=== PATIENT | female | born 1950 | race Caucasian/White ===

== ENCOUNTER 2021-03-29 08:48 | Day surgery (SDC) | payer MEDICARE, BC ==
[~2021-03-29] VITALS: Ht 172.7 cm; Wt 97.2 kg
[~2021-03-29 08:48] MED LIST: ALBU90OI INH; ATOR10 PO; ESTROGEN CREAM VAG; MELO7.5 PO
--- NOTE | 2021-03-29 10:05 | NUR ---
[facility] in [facility] warming gown applied. History, Chart, Medications and Allergies reviewed before start of procedure.Lungs clear T/O to Auscultation. Patient confirms NPO status and agrees with scheduled surgery. Pre-Op teaching done. Pt verbalizes understanding. Patient States Post-Procedure ride home has been arranged. Patient reports completing Chlorhexadine shower X2 prior to admission to hospital.
--- NOTE | 2021-03-29 11:52 | NUR ---
03/29/21 1152 Gabe Degroot SCAB LIKE LOOSE SKIN NOTED ON LEFT FOOT BELOW TOE ON THE PROXIMAL SIDE DIME SIZE. SURGEON MADE AWARE, NO NEW ORDERS.
--- NOTE | 2021-03-29 19:07 | NUR ---
SHIFT SUMMARY PT STATUS POST FOR L TOTAL KNEE. AQUACEL, [facility]KE WRAP, TEDS, AND POLAR PACK IN PLACE; CDI. UP TO THE BATHROOM WITH A SBA/FWW/GB AND VOIDING. NO C/O PAIN AT THIS TIME. VSS. WILL REPORT TO LORE CRAWLEY.
--- NOTE | 2021-03-30 04:16 | NUR ---
SUMMARY PT HAS NO ACUTE ISSUES NOTED. PT HAS BEEN AMBULATORY AND VOIDING WELL. PT REPORTS PAIN IS MINIMAL. PT HAS SLEPT WELL T/OUT SHIFT. PT DENIES N/T AND HAS GOOD SENSATION. NO N/V REPORTED THIS SHIFT. CALL LIGHT IN REACH.
[2021-03-30 05:19] LABS: BASOPHILS ABSOLUTE AUTO 0.01 K/mm3 (0.00-0.23); BASOPHILS PERCENT AUTO 0 % (0-2); EOSINOPHILS PERCENT AUTO 0 % (0-6); Hematocrit 37.9 % (33.0-51.0); Hemoglobin 12.5 g/dL (11.5-16.0); IMMATURE GRAN ABSOLUTE AUTO 0.03 K/mm3 (0.00-0.10); IMMATURE GRAN PERCENT AUTO 0 % (0-1); LYMPHOCYTES ABSOLUTE AUTO 0.64 K/mm3 (0.84-5.20); LYMPHOCYTES PERCENT AUTO 6 % (21-46); MONOCYTES ABSOLUTE AUTO 0.47 K/mm3 (0.16-1.47); MONOCYTES PERCENT AUTO 4 % (4-13); Mean Corpuscular HGB 29.5 pg (26.0-34.0); Mean Corpuscular Volume 89 fL (80-100); Mean Platelet Volume 10.5 fL (9.1-12.4); NEUTROPHILS ABSOLUTE AUTO 10.05 K/mm3 (1.96-9.15); NEUTROPHILS PERCENT AUTO 90 % (41-73); Platelet Count 174 K/mm3 (150-400); RDW Coefficient Variation 11.7 % (11.7-14.2); RDW Standard Deviation 37.3 fL (35.1-46.3); Red Blood Cell Count 4.24 M/mm3 (3.80-5.20)
[2021-03-30 05:36] LABS: Anion Gap 4 mmol/L (6-16); Blood Urea Nitrogen 22 mg/dL (8-24); Bun/Creatinine Ratio 27.4 (12.0-20.0); CO2, Blood 26 mmol/L (21-32); Calcium, Blood 8.4 mg/dL (8.5-10.1); Chloride, Blood 107 mmol/L (98-108); Glomerular Filtration Rate >60 (60-); Glucose, Blood 151 mg/dL (70-99); Magnesium, Blood 1.9 mg/dL (1.6-2.4); Potassium, Blood 4.6 mmol/L (3.5-5.5); Sodium, Blood 137 mmol/L (136-145)
[2021-03-30] MEDS ORDERED: Ecotrin325 MG PO (06:39)
[2021-03-30] MEDS ORDERED: OXAYDO5 M1 PO (06:55)
[2021-03-30] MEDS ORDERED: PROMETHAZINE12.5 M3 PO (06:56)
--- NOTE | 2021-03-30 12:45 | NUR ---
1235 discharged to home with her daughter. pt reports pain is well controlled with po meds. ambulating in room and alfonso with gait belt, walker and standby assist. marcus po food and fluids without nausea. dressing dry and intact to left knee. patient verbalizes understanding of discharge instructions
== END 2021-03-30 12:36 | disposition home or self-care (01) ==
LOC: ORSCMMR 08:48 → ORD 10:00 → ORSCMMR 10:00 → SURS 14:13 → ORSCMMR 14:13 → SURS 15:17 → ORSCMMR 03-30 12:36
PROVIDERS: Orthopaedic Surgery
PROC: 8E0YXBZ Computer Assisted Procedure of Lower Extremity (ICD-10-PCS; principal; 2021-03-29 10:00)
PROC: 0SRD0J9 Replacement of Left Knee Joint with Synthetic Substitute, Cemented, Open Approach (ICD-10-PCS; principal; 2021-03-29 10:00)
DX: M17.12 Unilateral primary osteoarthritis, left knee (principal); E78.5 Hyperlipidemia, unspecified; Z87.891 Personal history of nicotine dependence; Z79.899 Other long term (current) drug therapy
CPT/HCPCS: 36415; 73560-LT; 80048; 83735; 85025; 97110; 97116; 97162; 97530; A9270; C1713; C1776; J0171; J0690; J0735; J1100; J1885; J2250; J2370; J2405; J2704; J2795; J3010; J7120

== ENCOUNTER 2022-07-16 06:57 | Emergency (ER) | payer MEDICARE, BC ==
[~2022-07-16] VITALS: Ht 170.2 cm; Wt 102.5 kg
[~2022-07-16 06:57] MED LIST changes: +Ecotrin325 MG PO; +OXAYDO5 M1 PO; +PROMETHAZINE12.5 M3 PO
[2022-07-16 07:05] VITALS: BP 131/108
[2022-07-16] MEDS ORDERED: METOPROLOL SUCC25 MG PO (07:17)
[2022-07-16] MEDS ORDERED: DARIFENACIN ER15 MG PO (07:18)
[2022-07-16 09:05] LABS: Magnesium, Blood 2.3 mg/dL (1.6-2.4)
[2022-07-16 09:06] LABS: Bun/Creatinine Ratio 24.8 (12.0-20.0); Calcium, Blood 8.9 mg/dL (8.5-10.1); Creatinine, Blood 0.93 mg/dL (0.40-1.00); Potassium, Blood 4.1 mmol/L (3.5-5.5)
== END 2022-07-16 10:12 | disposition home or self-care (01) ==
LOC: ER 06:57
PROVIDERS: Student in an Organized Health Care Education/Training Program
DX: I48.91 Unspecified atrial fibrillation (principal); Z79.899 Other long term (current) drug therapy; I10 Essential (primary) hypertension
CPT/HCPCS: 36415; 80048; 83735; 93005; 93010; 93246; 99285-25

== ENCOUNTER 2022-11-07 08:36 | Day surgery (SDC) | payer MEDICARE, BC ==
[~2022-11-07] VITALS: Ht 172 cm; Wt 101.0 kg
[2022-11-07] VITALS (19 sets, daily range): BP systolic 95–143; BP diastolic 53–94
[~2022-11-07 08:36] MED LIST changes: +DARIFENACIN ER15 MG PO; +METOPROLOL SUCC25 MG PO
--- NOTE | 2022-11-07 12:59 | NUR ---
11/07/22 Brady Tello I VANCOMYCIN 1 GRAM WAS STARTED IN PREOP.
--- NOTE | 2022-11-07 19:17 | NUR ---
SHIFT SUMMARY POD0 R TKA, A/XO4, VSS, TOLERATING PO, VSS, DENIES PAIN, REPORTS SENSATION RETURNING TO HER LEGS AND IS ABLE TO WIGGLE TOES ON BOTH FEET. NO ACUTE EVENTS THIS SHIFT, CALL LIGHT IN REACH.
[2022-11-08 04:35] VITALS: BP 126/59
--- NOTE | 2022-11-08 05:16 | NUR ---
SHIFT SUMMARY POD1 RIGHT TKA. SENSATION AND CIRCULATION REMAINS INTACT. PT HAS AMBULATED MULTIPLE TIMES T/O THE SHIFT, IN ROOM AND IN BUSCH. VSS. PT TOLLERATING PO INTAKE W/O N/V, AND VOIDING WELL. PAIN HAS BEEN MANAGED WITH ONE PRN AND SCHEDULED. NO ACUTE EVENTS NOTED. PLAN TO WORK WITH THERAPT AND D/C HOME. NO IGNITION SOURCE NOTED
[2022-11-08 05:24] LABS: BASOPHILS ABSOLUTE AUTO 0.03 K/mm3 (0.00-0.23); BASOPHILS PERCENT AUTO 1 % (0-2); EOSINOPHILS ABSOLUTE AUTO 0.03 K/mm3 (0.00-0.68); EOSINOPHILS PERCENT AUTO 1 % (0-6); Hemoglobin 12.5 g/dL (11.5-16.0); IMMATURE GRAN ABSOLUTE AUTO 0.01 K/mm3 (0.00-0.10); IMMATURE GRAN PERCENT AUTO 0 % (0-1); LYMPHOCYTES ABSOLUTE AUTO 0.93 K/mm3 (0.84-5.20); LYMPHOCYTES PERCENT AUTO 14 % (21-46); MONOCYTES ABSOLUTE AUTO 0.59 K/mm3 (0.16-1.47); MONOCYTES PERCENT AUTO 9 % (4-13); Mean Corpuscular HGB 29.4 pg (26.0-34.0); Mean Corpuscular HGB Conc 32.9 g/dL (31.5-36.5); Mean Corpuscular Volume 89 fL (80-100); Mean Platelet Volume 10.7 fL (9.1-12.4); NEUTROPHILS ABSOLUTE AUTO 4.96 K/mm3 (1.96-9.15); NEUTROPHILS PERCENT AUTO 76 % (41-73); Platelet Count 117 K/mm3 (150-400); RDW Coefficient Variation 11.6 % (11.7-14.2); RDW Standard Deviation 37.5 fL (35.1-46.3); Red Blood Cell Count 4.25 M/mm3 (3.80-5.20); White Blood Cell Count 6.55 K/mm3 (4.00-11.30)
[2022-11-08 05:34] LABS: Calcium, Blood 8.1 mg/dL (8.5-10.1); Creatinine, Blood 0.83 mg/dL (0.40-1.00); Magnesium, Blood 1.8 mg/dL (1.6-2.4)
[2022-11-08 07:38] VITALS: BP 122/60
--- NOTE | 2022-11-08 10:50 | NUR ---
"Spiritual care | Pt. request Pt. is awake and sitting in a recliner when she welcomes my visit. Pt. displays evidence of awaiting discharge home. Pt. is pleasant. facilitate a lengthy life review and consider matters of lucila and belief. Listen with empathy and interest as rapport is established. Pt. was slightly unsettled about being new to the area. pasotral counel and encouragement are given. Pt. displays evidence of confidant trust. Prayed with Pt. Pt. verbalized gratitude for the spiritual care visit."
[2022-11-08] MEDS ORDERED: PROM25 PO (11:31)
[2022-11-08] MEDS ORDERED: SULTRIDS PO (11:32)
--- NOTE | 2022-11-08 13:19 | NUR ---
DISCHARGE SUMMARY POD 1 R TKA, A/OX4, VSS, TOLERATING PO, PAIN WELL MANAGED, AMBULATING WITH FWW AND MINIMAL SBA FOR SAFETY, DRESSING CHANGED THIS AM BY SURGERY WHO PROVIDED INCISION CARE AT HOME WITH HER. DISCUSSED DISCHARGE INFORMATION WITH HER AND HER DAUGHTER INCLUDING HOME CARE, MEDICATIONS, AND FOLLOW UP APPOINTMENTS. NO QUESTIONS AT THIS TIME, CONTACT INFORMATION GIVEN SHOULD ANY COME UP AFTER DC, IV REMOVED PRIOR TO DC. SHE WAS ESCORTED OUT VIA WC TO PRIVATE AUTO TO GO HOME.
== END 2022-11-08 13:06 | disposition home or self-care (01) ==
LOC: ORSCMMR 08:36 → ORD 10:45 → ORSCMMR 10:45 → SURS 15:36 → ORSCMMR 15:36 → SURS 11-08 13:06 → ORSCMMR 11-08 13:06
PROVIDERS: Orthopaedic Surgery
PROC: 0SRC0J9 Replacement of Right Knee Joint with Synthetic Substitute, Cemented, Open Approach (ICD-10-PCS; principal; 2022-11-07 10:45)
DX: M17.11 Unilateral primary osteoarthritis, right knee (principal); Z96.652 Presence of left artificial knee joint; I48.91 Unspecified atrial fibrillation; Z79.899 Other long term (current) drug therapy; E66.9 Obesity, unspecified; Z68.34 Body mass index [BMI] 34.0-34.9, adult
CPT/HCPCS: 36415; 73560-RT; 80048; 83735; 85025; 97110; 97116; 97161; A9270; C1713; C1776; J0171; J0690; J0735; J1885; J2704; J2795; J3010; J3370; J7050; J7120